=== PATIENT | male | born 1975 | race African-American/Black ===

== ENCOUNTER 2024-04-01 15:55 | Emergency (ER) | payer OTHER ==
[~2024-04-01] VITALS: Ht 177.8 cm; Wt 111.8 kg
[2024-04-01] MEDS ORDERED: MELO15TA28 PO (16:06)
[2024-04-01] MEDS ORDERED: AMLO1TAB25 PO (16:06)
[2024-04-01 21:41] VITALS: BP 175/104; TEMP 97.8; O2SAT 98
== END 2024-04-01 22:47 | disposition left against medical advice (07) ==
LOC: M ED 15:55
DX: Z53.21 Procedure and treatment not carried out due to patient leaving prior to being seen by health care provider (principal)

== ENCOUNTER → 2024-04-14 | Outpatient (REF) ==
[~2024-04-14] MED LIST: AMLO1TAB25 PO; MELO15TA28 PO
== END ==
LOC: M PLAIMG 09:03
PROVIDERS: ATTEND Internal Medicine
DX: R52 Pain, unspecified (principal)